=== PATIENT | female | born 1980 | race Asian ===

== ENCOUNTER 2017-05-18 09:00 | Inpatient (IN) | payer OTHER ==
[~2017-05-18] VITALS: Ht 162.6 cm; Wt 102.8 kg
[2017-05-18] MEDS ORDERED: METF-480 PO (09:38)
[2017-05-18] MEDS ORDERED: PRENAT PO (09:38)
[2017-05-18] MEDS ORDERED: NOVO7030 SC (09:38)
[2017-05-18 11:06] VITALS: BP 136/77; PULSE 96; RESP 18; Ht 162.6 cm; Wt 102.8 kg
[2017-05-18 11:17] LABS: BASOPHILS % 0.4 % (0.0-2.0); EOSINOPHILS # 0.1 10^3/ul (0.0-0.5); EOSINOPHILS % 0.7 % (0.0-7.0); HEMATOCRIT 36.9 % (37.0-47.0); HEMOGLOBIN 12.1 g/dl (12.0-16.0); LYMPHOCYTES # 1.2 10^3/ul (0.8-2.9); MEAN CORPUSCULAR HEMOGLOBIN 28.2 pg (29.0-33.0); MEAN CORPUSCULAR HGB CONC 32.8 g/dl (32.0-37.0); MEAN PLATELET VOLUME 9.8 fl (7.4-10.4); MONOCYTE # 0.7 10^3/ul (0.3-0.9); NEUTROPHIL # 5.1 10^3/ul (1.6-7.5); NEUTROPHILS % 71.5 % (39.0-77.0); PLATELET COUNT 233 10^3/UL (140-415); RED BLOOD COUNT 4.29 10^6/ul (4.20-5.40); WHITE BLOOD COUNT 7.2 10^3/ul (4.8-10.8)
--- NOTE | 2017-05-18 11:22 | RADRPT ---
PROCEDURE: US biophysical profile. CLINICAL INDICATION: GDM. well-being. TECHNIQUE: Multiple sonographic images of the uterus were obtained. The images were revi ewed on a PACS workstation. COMPARISON: 04/30/2017. FINDINGS: There is a single live intrauterine gestation. heart rate is 150 beats per minute. The position is cephalic. The placenta is posterior, grade II - III. The LAYNE is 24.6 cm. Dilated left renal pelvis and distended urinary bladder are noted. Breathing Movement: 2 Gross Body Movement: 2 Tone: 2 Qualitative Amniotic Fluid Volume: 2 TOTAL: 8 IMPRESSION: 1. Single viable intrauterine gestation. 2. Biophysical profile = 05/13. 3. LAYNE = 24.6 cm. 4. Dilated left renal pelvis and distended urinary bladder. RPTAT: QQ .Rachele Daniel MD, MD Date Time Electronically viewed and signed by .Rachele Daniel MD, MD on 05/18/2017 11:22 .N/
[2017-05-18 11:27] LABS: INR 0.97; PARTIAL THROMBOPLASTIN TIME 24.3 Sec (25.0-35.0); PROTIME 12.9 Sec (12.2-14.2)
[2017-05-18 11:37] LABS: ALBUMIN 3.6 g/dl (3.3-4.9); ALBUMIN/GLOBULIN RATIO 1.16; BILIRUBIN,INDIRECT 0.2 mg/dl (0-1.1); BILIRUBIN,TOTAL 0.2 mg/dl (0.2-1.3); CALCIUM 9.1 mg/dl (8.4-10.2); CREATININE 0.49 mg/dl (0.44-1.00); POTASSIUM 3.9 mmol/L (3.5-5.1); TOTAL PROTEIN 6.7 g/dl (6.1-8.1)
[2017-05-18 12:38] LABS: ADD UMIC YES; UR ASCORBIC ACID NEGATIVE (NEGATIVE); UR BACTERIA FEW /HPF (NONE SEEN); UR BILIRUBIN (Dip) NEGATIVE (NEGATIVE); UR BLOOD (Dip) NEGATIVE (NEGATIVE); UR CLARITY SLIGHTLY CLOUDY (CLEAR); UR COLOR YELLOW (YELLOW); UR GLUCOSE (Dip) NEGATIVE (NEGATIVE); UR KETONES (Dip) TRACE mg/dL (NEGATIVE); UR LEUKOCYTE ESTERASE (Dip) 1+ Leu/ul (NEGATIVE); UR MUCUS FEW /HPF (NONE SEEN); UR NITRITE (Dip) NEGATIVE (NEGATIVE); UR RBC 2 /HPF (0-5); UR SPECIFIC GRAVITY (Dip) 1.019 (1.003-1.030); UR SQUAMOUS EPITHELIAL CELL FEW /HPF (FEW); UR TOTAL PROTEIN (Dip) NEGATIVE (NEGATIVE); UR UROBILINOGEN (Dip) NEGATIVE (NEGATIVE)
[2017-05-18 13:09] LABS: SCRET 0.48 mg/dl (0.44-1.00)
--- NOTE | 2017-05-18 14:00 | HP ---
Date/Time of Note Date/Time of Note DATE: 05/18/17 TIME: 13:58 OB - History Hx of Present Free Text/Dictation @36+wks with Preeclampsia : 3 Para: 1 Care: Good Care Ultrasounds: Normal mid trimester US Obstetrical Complications: Pre-eclampsia, Gestational Hypertension Past Family/Social History * Past Medical, Surgical, Family and Obstetric Histories reviewed from chart. OB Admission Exam Vital Signs Vital Signs Vital Signs Date Time Temp Pulse Resp B/P Pulse Ox O2 Delivery O2 Flow Rate FiO2 05/18/17 11:06 98.2 96 18 136/77 Room Air Physical Exam Abdomen: WNL Reflexes: Normal Membranes: Intact Heart Rate: 140's Accelerations: Accelerations Present Decelerations: No Decelerations Varibility: Moderate Contractions on Admission: 6-10 Minutes Apart Last 72 hours Lab Results CBC & BMP 05/18/17 11:01 Liver Function Test 05/18/17 11:01 Alanine Aminotransferase (ALT/SGPT) 28 Albumin 3.6 Alkaline Phosphatase 114 Aspartate Amino Transf (AST/SGOT) 20 Direct Bilirubin 0.00 Total Protein 6.7 OB Assessment/Plan Reason for admission: observation Plan: Expectant Management Other plan: PIH panel repeat 24 hr urine for protein Close Observation ALETA RODRIGUEZ M.D. May 18, 2017 14:00
[2017-05-18] MEDS ORDERED: NPH,100V SQ (14:12)
--- NOTE | 2017-05-18 14:23 | TRIAGE ---
OB Triage Datetime Report Generated by CPN: 05/18/2017 14:23 Datetime: 05/18/2017 12:30 Stage of : OB Triage Maternal Assessment Level of Consciousness: Fully Conscious Labor Evaluation Frequency: 3UC/HR Monitor Mode: External Duration (sec)2399: 70-160 Quality: Mild Resting Tone [place]: Relaxed Heart Rate FHR Baseline Rate: 145 Monitor Mode: External US Variability: Moderate 6-25 bpm Accelerations: 15X15 Decelerations: None Pain Assessment Pain Scale: 3 Pain Goal: 0 Vaginal Exam Membrane Status: Intact Vaginal Bleeding: None Datetime: 05/18/2017 11:30 Stage of : OB Triage Maternal Assessment Level of Consciousness: Fully Conscious Labor Evaluation Frequency: 5UC/HR Monitor Mode: External Duration (sec)2399: 50-70 Quality: Mild Resting Tone [place]: Relaxed Heart Rate FHR Baseline Rate: 145 Monitor Mode: External US Variability: Moderate 6-25 bpm Accelerations: 15X15 Decelerations: None Category: Category I Pain Assessment Pain Scale: 3 Pain Goal: 0 Vaginal Exam Membrane Status: Intact Vaginal Bleeding: None Datetime: 05/18/2017 10:30 Stage of : OB Triage Maternal Assessment Level of Consciousness: Fully Conscious Labor Evaluation Frequency: OCCASIONAL Monitor Mode: External Duration (sec)2399: 50-110 Quality: Mild Resting Tone [place]: Relaxed Heart Rate FHR Baseline Rate: 145 Monitor Mode: External US Variability: Moderate 6-25 bpm Accelerations: 15X15 Decelerations: None Category: Category I Pain Assessment Pain Scale: 3 Pain Goal: 0 Vaginal Exam Membrane Status: Intact Vaginal Bleeding: None Datetime: 05/18/2017 09:42 Stage of : OB Triage Assessment Type: Triage Maternal Assessment Level of Consciousness: Fully Conscious DTR's/Clonus: DTRs 2+; No Clonus Headache: Denies Blurred Vision: No Respiratory Effort: Unlabored; Regular Rhythm; Equal Expansion Breath Sounds, Left: Clear and Equal Breath Sounds, Right: Clear and Equal Nausea/Vomiting: Denies RUQ Epigastric Pain: Denies Facial Edema: None Temperature Route: Axillary Fall Risk Assessment History of Falling: (0) No Secondary Diagnosis: (0) No Ambulatory Aid: (0) Bedrest/Nurse Assist IV Therapy: (0) No Gait: (0) Normal/Bedrest/Immobile Mental Status: (0) Oriented to Own Ability Fall Score: 0 Fall Risk Score Definition: No Risk: No action required Labor Evaluation Frequency: 0 Monitor Mode: External Resting Tone [place]: Relaxed Heart Rate FHR Baseline Rate: 165 Monitor Mode: External US Variability: Moderate 6-25 bpm Accelerations: 10X10 Decelerations: None Category: Category I Pain Assessment Pain Scale: 0 Pain Presence: None/Denies Pain Type: N/A Pain Goal: 3 Pain Relief Measures: Comfort Measures Datetime: 05/18/2017 09:41 Time of Arrival: 05/18/2017 08:50 EGA: 36.4 Arrived By: Ambulatory Arrived From: Home Chief Complaint: F/U 24 HOUR URINE, Movement: Present Contractions: Denies/Absent Rupture of Membranes: Denies Vaginal Bleeding: None Vaginal Discharge: Denies Recent Sexual Intercouse: Denies Abdominal Trauma: Not Applicable Patient Complaints: None Time Provider Notified: 05/18/2017 10:25 Provider Notified: JENNIFER Initial Plan: MONITOR, 24 HOUR URINE RESULTS, CREATINE, TOTAL PROTEIN Datetime: 04/30/2017 11:23 Comments: Hiccups
[2017-05-18] MEDS ORDERED: metFORMIN 850 MG TAB PO SCH (21:00)
[2017-05-18] MEDS ORDERED: NPH, HUMAN INSULIN ISOPHANE 3ML VIAL SC SCH (21:00)
[2017-05-19] MEDS ORDERED: PRENATAL VITAMIN PO SCH (09:00)
[2017-05-19 16:37] LABS: SCRET 0.49 mg/dl (0.44-1.00)
--- NOTE | 2017-05-19 18:38 | DS ---
Date/Time of Note Date/Time of Note DATE: 05/19/17 TIME: 18:36 Obstetrical Discharge Record Final Diagnosis Final Diagnosis: not delivered Other Final Diagnosis iup 36+ Protienuria-360mg gdm-stable pt admitted for obs for urine collection and r/o PIH. labs wnl bp wnl 24 hour urine 360mg pt on day of dc home has no symptoms will f/u with [facility] clinic in am Complications Gestational Diabetes Condition on Discharge Physical Assessment Voiding: Yes Bowel Movement: Yes Breast: Soft, non-tender Calf Tenderness: No Patient Condition: Stable NANCY HERNANDEZ MD May 19, 2017 18:38
== END 2017-05-19 19:45 | disposition home or self-care (01) | DRG 780 ==
LOC: OBT 09:00 → L-D 09:34 → OBT 13:55 → OBG 13:55
PROVIDERS: ADMIT Obstetrics & Gynecology; ATTEND Obstetrics & Gynecology
DX: O47.03 False labor before 37 completed weeks of gestation, third trimester (principal); O14.93 Unspecified pre-eclampsia, third trimester; Z3A.36 36 weeks gestation of pregnancy
CPT/HCPCS: 76818; 80053; 81001; 82565; 82575; 82962; 84156; 84560; 85025; 85384; 85610; 85730; G0463; J1815